=== PATIENT | male | born 1950 | race Caucasian/White ===

== ENCOUNTER 2018-06-22 11:55 | Inpatient (IN) | payer SELFPAY ==
[~2018-06-22] VITALS: Ht 180.3 cm; Wt 102.5 kg
[2018-06-22] MEDS ORDERED: TRESIBA FL100 UNIT/1 SQ (12:08)
[2018-06-22] MEDS ORDERED: GABAPENTIN300 MG ORAL (12:08)
[2018-06-22] MEDS ORDERED: Meclizine 25mg tab ORAL STA (12:11)
[2018-06-22 12:26] VITALS: BP 161/97
--- NOTE | 2018-06-22 12:27 | Emergency Room Report ---
History of Present Illness General Chief Complaint: Vomiting Source: Patient Present Illness HPI 67-year-old male with history of hypertension comes into the ER for pressure in his head, nausea and vomiting. Denies abdominal pain, denies chest pain, denies focal numbness, tingling, weakness, slurred speech. Allergies: Coded Allergies: No Known Allergies (Unverified , 06/22/18) Patient History Past Medical History: see triage record Reviewed Nursing Documentation: PMH: Agreed; PSxH: Agreed Nursing Documentation-PMH Hx Diabetes: Yes Review of Systems All Other Systems: negative except mentioned in HPI Physical Exam Vital Signs Date Time Temp Pulse Resp B/P (MAP) Pulse Ox O2 Delivery O2 Flow Rate FiO2 06/22/18 12:00 98.1 98 17 94 Room Air Sp02 EP Interpretation: reviewed, normal General Appearance: no apparent distress, alert, non-toxic Head: normocephalic Eyes: bilateral eye normal inspection, bilateral eye PERRL, bilateral eye EOMI ENT: normal ENT inspection, hearing grossly normal, normal pharynx, no angioedema, normal voice, moist mucus membranes Neck: normal inspection, full range of motion, supple, supple/symm/no masses Respiratory: chest non-tender, lungs clear, normal breath sounds, chest symmetrical, palpation of chest normal Cardiovascular #1: normal peripheral pulses, regular rate, rhythm Cardiovascular #2: 2+ radial (R), 2+ radial (L) Gastrointestinal: normal inspection, non tender, soft, no mass, no guarding, no rebound Rectal: deferred Genitourinary: normal inspection, no CVA tenderness Musculoskeletal: back normal, gait/station normal, normal range of motion, non- tender, no calf tenderness Neurologic: 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 patient with no more active vomiting s/p iv zofran and meclizine, IVF, ct head normal, cxr, labs, ekg all unremarkable, will give ASA and admit to Dr. Robledo , on tele, dx vertigo. EKG Diagnostic Results EKG Time: 13:20 EP Interpretation: no stemi Rate: normal Rhythm: NSR ST Segments: no acute changes ASA given to the pt in ED: Yes Rhythm Strip Diag. Results Rhythm Strip Time: 13:25 EP Interpretation: yes Rate: 70 Rhythm: NSR, no PVC's, no ectopy Chest X-Ray Diagnostic Results Chest X-Ray Diagnostic Results : Chest X-Ray Ordered: Yes Indication: Other - dizziness EP Interpretation: Yes Interpretation: no consolidation, no effusion, no pneumothorax, no acute cardiopulmonary disease Impression: No acute disease Electronically Signed by: Richard Naidu MD CT/MRI/US Diagnostic Results CT/MRI/US Diagnostic Results : Imaging Test Ordered: ct brain noncontrast Last Vital Signs Date Time Temp Pulse Resp B/P (MAP) Pulse Ox O2 Delivery O2 Flow Rate FiO2 06/22/18 12:00 98.1 98 17 94 Room Air Disposition: ADMITTED INPATIENT Condition: Stable Signed Out To: RICHARD Aguilar M.D June 22, 2018 12:27
--- NOTE | 2018-06-22 12:28 | NUR ---
ED Nurse Note:pt. came with c/o nausea vomiting abd pain since wednesday, A/Ox4 ambulatory with steady gait, VSS, blood and urine sent to labs, given IV fluids and meds
[2018-06-22 12:29] LABS: APPEARANCE,URINE CLEAR; BILIRUBIN, URINE NEGATIVE (NEGATIVE); COLOR,URINE YELLOW; GLUCOSE, URINE (UA) NEGATIVE (NEGATIVE); KETONES,URINE NEGATIVE (NEGATIVE); LEUKOCYTE ESTERASE ,URINE NEGATIVE (NEGATIVE); NITRITE,URINE NEGATIVE (NEGATIVE); PH,URINE 6.5 (4.5-8.0); PROTEIN,URINE NEGATIVE (NEGATIVE); UROBILINOGEN,URINE NORMAL MG/DL (0.0-1.0)
[2018-06-22 12:30] LABS: BASOPHILS % (AUTO) 0.9 % (0.0-2.0); EOSINOPHILS % (AUTO) 0.6 % (0.0-3.0); HEMATOCRIT 50.4 % (42.0-52.0); HEMOGLOBIN 17.4 G/DL (14.2-18.0); LYMPHOCYTES % (AUTO) 35.7 % (20.0-45.0); MEAN CORPUSCULAR VOLUME 89 FL (80-99); MONOCYTES % (AUTO) 6.2 % (1.0-10.0); NEUTROPHILS % (AUTO) 56.6 % (45.0-75.0); PLATELET COUNT 199 K/UL (150-450); RED BLOOD COUNT 5.64 M/UL (4.70-6.10); RED CELL DISTRIBUTION WIDTH 11.7 % (11.6-14.8); WHITE BLOOD COUNT 7.4 K/UL (4.8-10.8)
[2018-06-22 12:42] LABS: ANION GAP 9 mmol/L (5-15); BLOOD UREA NITROGEN 14 mg/dL (7-18); CALCIUM 8.6 MG/DL (8.5-10.1); CARBON DIOXIDE 25 MMOL/L (21-32); CHLORIDE 98 MMOL/L (98-107); CREATININE 0.8 MG/DL (0.55-1.30); POTASSIUM 4.3 MMOL/L (3.5-5.1); SODIUM 132 MMOL/L (136-145)
[2018-06-22] MEDS ORDERED: Acetaminophen 500mg (ES) tab ORAL ONE ×2 (12:45)
[2018-06-22 12:51] LABS: ALANINE AMINOTRANSFERASE 35 U/L (12-78); ALBUMIN 3.7 G/DL (3.4-5.0); ALBUMIN/GLOBULIN RATIO 0.8 (1.0-2.7); ALKALINE PHOSPHATASE 56 U/L (46-116); ASPARTATE AMINO TRANSFERASE 23 U/L (15-37); BILIRUBIN,TOTAL 0.7 MG/DL (0.2-1.0)
--- NOTE | 2018-06-22 13:54 | Diagnostic Imaging Report ---
Indication: Dyspnea Comparison: None A single view chest radiograph was obtained. Findings: Cardiomediastinal appearance is within normal limits for age. The lungs are clear. Pulmonary vascularity is appropriate. The diaphragmatic contour is smooth and costophrenic angles are sharp. No pleural effusions are identified. The bones are unremarkable. Impression: No acute findings
--- NOTE | 2018-06-22 13:54 | Diagnostic Imaging Report ---
Indication: Dizziness and headache Technique: Contiguous 5 mm thick transaxial imaging of the head obtained in a Siemens Sensation [address] scanner. Soft tissue and bone windows generated. Automatic Exposure Control was utilized. Total Dose length Product (DLP): 1435.[address] Dose Index Volume (CTDIvol): 70.38 mGy Comparison: none Findings: There is mild prominence of the ventricles, basal cisterns, and cerebral sulci consistent with atrophy. Mild, nonspecific, white matter hypoattenuation is noted throughout the brain consistent with chronic small vessel disease. There is no midline shift, edema, acute hemorrhage, mass effect, or abnormal extra-axial fluid collections. Bones and extra osseous soft tissues are unremarkable. The mastoids are poorly pneumatized. Impression: No acute intracranial bleed, mass effect or edema. Mild atrophy of the brain. Nonspecific white matter hypoattenuation probably due to chronic small vessel disease. The CT scanner at [facility] is accredited by the [employer] and the scans are performed using dose optimization techniques as appropriate to a performed exam including Automatic Exposure control.
[2018-06-22] MEDS ORDERED: DiphenhydrAMINE 50mg/ml Inj IVP ONE (14:15)
[2018-06-22] MEDS ORDERED: Metoclopramide 10mg/2ml Inj IVP ONE (14:15)
[2018-06-22 14:36] VITALS: BP 138/90
--- NOTE | 2018-06-22 14:38 | NUR ---
ED Nurse Note:pt. was placed on phototypesetting equipment monitor and will be admited to tele, pain meds were given, condition stable
[2018-06-22] MEDS ORDERED: LORazepam Inj 2mg/ml 1ml IV PRN (14:45)
--- NOTE | 2018-06-22 14:45 | NUR ---
ED Nurse Note:pt's jesus [phone]
[2018-06-22] MEDS ORDERED: Ketorolac 30mg Inj IV PRN (15:00)
--- NOTE | 2018-06-22 15:04 | History and Physical ---
History of Present Illness General Date patient seen: June 22, 2018 Time patient seen: 14:45 Reason for Hospitalization: Vomiting Present Illness HPI 67 year old man with obesity and type 2 DM, visiting from [place] who presents to the ED with complaints of diffuse headache, intractable nausea and vomiting, inability to maintain any oral intake. Symptoms started Wednesday after arriving to [place]. Denies any fever, chills, abdominal pain, diarrhea. No sick contacts. No chest pain, dyspnea or palpitations. No leg swelling. Patient was evaluated at [facility] ED 3 days ago, treated with IV fluids with improvement and released. In E Social History: Never smoker Family History: No premature CAD Allergies: Coded Allergies: No Known Allergies (Unverified , 06/22/18) Medication History Scheduled Gabapentin* (Gabapentin*), 300 MG ORAL THREE TIMES A DAY, (Reported) Miscellaneous Medications Insulin Degludec (Tresiba Flextouch U-100), 100 UNIT SQ, (Reported) Patient History Healthcare decision maker Resuscitation status Advanced Directive on File Review of Systems Constitutional: Denies: chills, fever Eye: Denies: eye pain, blurred vision ENT: Denies: ear pain Respiratory: Denies: cough Cardiovascular: Denies: chest pain Gastrointestinal: Reports: nausea, vomiting; Denies: abdominal pain, melena, hematemesis Genitourinary: Denies: dysuria Musculoskeletal: Denies: back pain, joint pain Skin: Denies: rash Neurological: Reports: headache; Denies: numbness, paresthesia, seizure, tingling Physical Exam General Appearance: no apparent distress, alert HEENT: atraumatic, anicteric Neck: normal alignment, supple Respiratory/Chest: lungs clear, normal breath sounds, no respiratory distress Cardiovascular/Chest: normal rate, regularly irregular Abdomen: non tender, soft, no organomegaly Extremities: non-tender, normal inspection 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, no motor/sensory deficits, alert, oriented x 3, responsive Last 24 Hour Vital Signs Date Time Temp Pulse Resp B/P (MAP) Pulse Ox O2 Delivery O2 Flow Rate FiO2 06/22/18 14:36 98.1 67 17 138/90 97 Room Air 06/22/18 13:15 98.1 06/22/18 12:26 98.1 96 17 161/97 94 Room Air 06/22/18 12:26 98 17 Room Air 06/22/18 12:00 98.1 98 17 94 Room Air Laboratory Tests Test 06/22/18 12:20 White Blood Count 7.4 K/UL (4.8-10.8) Red Blood Count 5.64 M/UL (4.70-6.10) Hemoglobin 17.4 G/DL (14.2-18.0) Hematocrit 50.4 % (42.0-52.0) Mean Corpuscular Volume 89 FL (80-99) Mean Corpuscular Hemoglobin 30.8 PG (27.0-31.0) Mean Corpuscular Hemoglobin Concent 34.6 G/DL (32.0-36.0) Red Cell Distribution Width 11.7 % (11.6-14.8) Platelet Count 199 K/UL (150-450) Mean Platelet Volume 7.5 FL (6.5-10.1) Neutrophils (%) (Auto) 56.6 % (45.0-75.0) Lymphocytes (%) (Auto) 35.7 % (20.0-45.0) Monocytes (%) (Auto) 6.2 % (1.0-10.0) Eosinophils (%) (Auto) 0.6 % (0.0-3.0) Basophils (%) (Auto) 0.9 % (0.0-2.0) Urine Color Yellow Urine Appearance Clear Urine pH 6.5 (4.5-8.0) Urine Specific [place] 1.015 (1.005-1.035) Urine Protein Negative (NEGATIVE) Urine Glucose (UA) Negative (NEGATIVE) Urine Ketones Negative (NEGATIVE) Urine Blood Negative (NEGATIVE) Urine Nitrite Negative (NEGATIVE) Urine Bilirubin Negative (NEGATIVE) Urine Urobilinogen Normal MG/DL (0.0-1.0) Urine Leukocyte Esterase Negative (NEGATIVE) Sodium Level 132 MMOL/L (136-145) L Potassium Level 4.3 MMOL/L (3.5-5.1) Chloride Level 98 MMOL/L (98-107) Carbon Dioxide Level 25 MMOL/L (21-32) Anion Gap 9 mmol/L (5-15) Blood Urea Nitrogen 14 mg/dL (7-18) Creatinine 0.8 MG/DL (0.55-1.30) Estimat Glomerular Filtration Rate > 60 mL/min (>60) Glucose Level 152 MG/DL (74-106) H Calcium Level 8.6 MG/DL (8.5-10.1) Total Bilirubin 0.7 MG/DL (0.2-1.0) Aspartate Amino Transf (AST/SGOT) 23 U/L (15-37) Alanine Aminotransferase (ALT/SGPT) 35 U/L (12-78) Alkaline Phosphatase 56 U/L (46-116) Total Protein 8.3 G/DL (6.4-8.2) H Albumin 3.7 G/DL (3.4-5.0) Globulin 4.6 g/dL Albumin/Globulin Ratio 0.8 (1.0-2.7) L Lipase 179 U/L (73-393) Height (Feet): 5 Height (Inches): 11.00 Weight (Pounds): 226 Medications Current Medications Medications (Trade) Dose Ordered Sig/Ami Route PRN Reason Start Time Stop Time Status Last Admin Dose Admin Acetaminophen (Tylenol) 650 mg Q4H PRN ORAL Mild Pain (Pain Scale 1-3) 06/22/18 14:45 07/22/18 14:44 Dextrose (Dextrose 50%) 25 ml Q30M PRN IV Hypoglycemia 06/22/18 14:45 07/22/18 14:44 Dextrose (Dextrose 50%) 50 ml Q30M PRN IV Hypoglycemia 06/22/18 14:45 07/22/18 14:44 Gabapentin (Neurontin) 300 mg THREE TIMES A DAY ORAL 06/22/18 18:00 07/22/18 17:59 Heparin Sodium (Porcine) (Heparin 5000 units/ml) 5,000 units EVERY 12 HOURS SUBQ 06/22/18 21:00 07/22/18 20:59 Lorazepam (Ativan 2mg/ml 1ml) 0.5 mg Q4H PRN IV For Anxiety 06/22/18 14:45 06/29/18 14:44 Ondansetron HCl (Zofran) 4 mg Q6H PRN IVP Nausea & Vomiting 06/22/18 14:45 07/22/18 14:44 Prochlorperazine (Compazine) 10 mg Q6H PRN IVP Nausea & Vomiting 06/22/18 14:45 07/22/18 14:44 Sodium Chloride 1,000 ml @ 100 mls/hr Q10H IVLG 06/22/18 18:00 07/22/18 17:59 Assessment/Plan Assessment/Plan: 67 year old man with history of obesity and DM who presents with persistent headache, nausea, vomiting and inability to maintain oral intake. 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
--- NOTE | 2018-06-22 15:05 | NUR ---
ED Nurse Note:pt. went to MRI
--- NOTE | 2018-06-22 15:30 | NUR ---
ED Nurse Note:pt. is back from MRI
--- NOTE | 2018-06-22 15:36 | NUR ---
ED Nurse Note:called report to tele- given to becka Logan. taken up stairs
--- NOTE | 2018-06-22 15:57 | Diagnostic Imaging Report ---
Indication: Headache dizziness Technique: The head was imaged in a 1.5 Karen magnet. Sequences obtained include sagittal and axial T1 FLAIR, axial T2 fast spin echo with fat saturation, axial T2 FLAIR, diffusion and ADC map. Comparison: None Findings: There is mild prominence of the sulci, ventricles, and basal cisterns consistent with atrophy. Minimal, nonspecific T2 hyperintensity noted within white matter. This may be due to chronic small vessel disease. There is no restricted diffusion. Avilez-white differentiation is normal. There is no mass effect, midline shift, edema, or hemorrhage. There are no abnormal extra-axial or intra-axial fluid collections. The corpus callosum and sella are unremarkable. The brainstem and cerebellum are unremarkable. Bone marrow signal within the visualized osseous structures appears age appropriate and unremarkable otherwise. There is mucosal thickening in the left maxillary sinus Impression: No acute intracranial findings. No acute CVA. Mild atrophy. Minimal periventricular T2 signal likely due to chronic small vessel disease. Sinus disease
[2018-06-22 16:03] VITALS: BP 140/80
[2018-06-22] MEDS: NovoLOG Insulin Flexpen SUBQ SCH ×2 (16:17→21:19)
--- NOTE | 2018-06-22 19:13 | NUR ---
HAND-OFF: Report given to FRANCY LEE.
[2018-06-22] MEDS ORDERED: Hydromorphone 0.5mg/0.5ml inj IVP PRN (19:15)
--- NOTE | 2018-06-22 19:15 | NUR ---
NURSE NOTES: Report received from Maddy Bruce RN. Pt is resting in bed in stable condition. Pt is awake, alert, and oriented x4, primarily Farsi speaking. Pt is on room air and breathing is even and unlabored. No acute distress noted. IV site is R AC #22 and running IV fluids at rx rate. IV site is asymptomatic, patent, and intact. Bed is placed in lowest position with brake engaged, side rails up x2. and friend, Kristofer are at bedside. Pt education provided regarding clear liquid diet and emphasis placed in maintaining diet. Pt agreeable and verbalized understanding. Pt denies N/V at this time. Will continue to monitor.
--- NOTE | 2018-06-22 19:45 | NUR ---
NURSE NOTES: Pt requesting for diet change d/t being hungry and also requesting private room so that is able to stay with him overnight. Pt informed that we would accommodate the room change as available and that the doctor would be informed about diet change request. Pt again reminded regarding clear liquid diet and to maintain until diet change was made by provider.
--- NOTE | 2018-06-22 19:50 | NUR ---
NURSE NOTES: Pt friend brought rice and meat and pt admitted to eating the food despite pt education and emphasis on maintaining a clear liquid diet. Pt states that he is not having N/V/abdominal pain and that he was hungry so he ate. Pt education regarding importance of maintaining rx diet provided again. Pt states that he "won't eat anything else now." MD Pedro, covering for MD Hitchcock, informed regarding pt non-compliance with diet. Per MD, inform MD Beckham/Coretta in AM as well and continue to monitor patient.
[2018-06-22 20:00] VITALS: BP 136/78
--- NOTE | 2018-06-22 20:30 | NUR ---
NURSE NOTES: Charge nurse Adelaide Sotelo aware of pt non-compliance with diet.
[2018-06-22] MEDS: Heparin 5000 units/ml inj SUBQ SCH (21:00)
[2018-06-22] MEDS ORDERED: Levemir Flexpen SUBQ SCH (21:00)
[2018-06-22] MEDS: Metoclopramide 10mg/2ml Inj IVP SCH (21:18)
[2018-06-22] MEDS: Pantoprazole Inj IVP SCH (21:18)
[2018-06-23] VITALS: BP 113/56
[2018-06-23] MEDS: Metoclopramide 10mg/2ml Inj IVP SCH (03:15)
[2018-06-23 04:00] VITALS: BP 127/61
[2018-06-23] MEDS: NovoLOG Insulin Flexpen SUBQ SCH ×2 (06:17→12:07)
[2018-06-23 06:27] LABS: BASOPHILS % (AUTO) 1.1 % (0.0-2.0); EOSINOPHILS % (AUTO) 1.1 % (0.0-3.0); HEMATOCRIT 45.9 % (42.0-52.0); HEMOGLOBIN 15.7 G/DL (14.2-18.0); MEAN CORPUSCULAR VOLUME 90 FL (80-99); MONOCYTES % (AUTO) 6.4 % (1.0-10.0); NEUTROPHILS % (AUTO) 46.4 % (45.0-75.0); PLATELET COUNT 176 K/UL (150-450); RED BLOOD COUNT 5.13 M/UL (4.70-6.10); RED CELL DISTRIBUTION WIDTH 11.6 % (11.6-14.8); WHITE BLOOD COUNT 6.5 K/UL (4.8-10.8)
[2018-06-23 06:47] LABS: ALANINE AMINOTRANSFERASE 29 U/L (12-78); ALBUMIN 3.1 G/DL (3.4-5.0); ALBUMIN/GLOBULIN RATIO 0.8 (1.0-2.7); ALKALINE PHOSPHATASE 53 U/L (46-116); ANION GAP 6 mmol/L (5-15); ASPARTATE AMINO TRANSFERASE 17 U/L (15-37); BILIRUBIN,TOTAL 0.5 MG/DL (0.2-1.0); BLOOD UREA NITROGEN 13 mg/dL (7-18); CARBON DIOXIDE 28 MMOL/L (21-32); CHLORIDE 104 MMOL/L (98-107); CHOLESTEROL 156 MG/DL (< 200); CREATININE 0.8 MG/DL (0.55-1.30); HDL CHOLESTEROL 41 MG/DL (40-60); PHOSPHORUS 3.4 MG/DL (2.5-4.9); POTASSIUM 3.9 MMOL/L (3.5-5.1); SODIUM 138 MMOL/L (136-145); TRIGLYCERIDES 138 MG/DL (30-150)
--- NOTE | 2018-06-23 07:39 | NUR ---
HAND-OFF: Report given to Nakia Miranda RN. Pt is resting in bed in stable condition. No acute distress noted. Endorsed plan of care.
--- NOTE | 2018-06-23 07:48 | NUR ---
NURSE NOTES: Received report from Melissa/LEE. Patient is awake and resting on bed, No acute distress at this time. at bedside, Bed in lowest position and locked, Call light within reach. Will continue plan of care.
[2018-06-23 08:00] VITALS: BP 151/81
[2018-06-23] MEDS: Pantoprazole Inj IVP SCH (09:02)
[2018-06-23] MEDS: Heparin 5000 units/ml inj SUBQ SCH (09:05)
[2018-06-23] MEDS ORDERED: FAMOTIDINE20 MG ORAL (11:35)
[2018-06-23] MEDS ORDERED: REGLAN10 MG ORAL (11:35)
--- NOTE | 2018-06-23 11:53 | Discharge Summary ---
Discharge Summary Hospital Course Date of Admission June 22, 2018 at 14:00 Date of Discharge 06/23 Admitting Diagnosis Dizziness AMAURI Clement is a 67 year old male who was admitted on June 22, 2018 at 14:00 for Dizziness Hospital Course 67 year old man with history of obesity and DM who presents with persistent headache, nausea, vomiting and inability to maintain oral intake. 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
[2018-06-23 12:00] VITALS: BP 130/76
--- NOTE | 2018-06-23 12:45 | NUR ---
NURSE NOTES: Discharge instruction given, Patient verbalized understanding. Heart monitor and IV removed, No sign of distress. Patient in stable condition. Escorted patient and family members to down stairs. left via private vehicle.
--- NOTE | 2018-06-23 12:47 | NUR ---
CASE MANAGEMENT:REVIEW 67YR OLD MALE PRESENTED TO ER CC: VOMITING AND HEADACHE SI: VOMITING. VERTIGO 98.0 98 17 161/97 94% ON RA GLUCOSE+152 IS; MECLIZINE PO 1L NS BOLUS IV ZOFRAN CT HEAD CXR : TO TELEMETRY
--- NOTE | 2018-06-23 12:55 | Consultation ---
History of Present Illness General Date patient seen: June 22, 2018 Chief Complaint: Headache Referring physician: Dr. Montgomery Present Illness HPI 67 year old man with obesity and type 2 DM, visiting from [place] who presented to the ED with complaints of diffuse headache, intractable nausea and vomiting, inability to maintain any oral intake. Symptoms started Wednesday after arriving to [place]. He denied any fever, chills, abdominal pain, diarrhea, sick contacts, chest pain , dyspnea or palpitations, leg swelling. Patient was evaluated at [facility] ED 3 days ago for similar complaints, treated with IV fluids with improvement and released. Allergies: Coded Allergies: No Known Allergies (Unverified , 06/22/18) Medication History Scheduled Famotidine (Famotidine), 20 MG ORAL BID Gabapentin* (Gabapentin*), 300 MG ORAL THREE TIMES A DAY, (Reported) Metoclopramide Hcl* (Reglan*), 10 MG ORAL THREE TIMES A DAY Miscellaneous Medications Insulin Degludec (Tresiba Flextouch U-100), 100 UNIT SQ, (Reported) Patient History Healthcare decision maker Resuscitation status Full Code Advanced Directive on File Physical Exam General Appearance: obese Lines, tubes and drains: peripheral HEENT: normocephalic, atraumatic Neck: non-tender, normal alignment, supple Respiratory/Chest: normal breath sounds, no respiratory distress, no accessory muscle use Cardiovascular/Chest: normal rate, regular rhythm, no JVD Skin Exam: normal pigmentation, warm/dry 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, no motor/sensory deficits, abnormal gait , alert, oriented x 3, responsive, normal mood/affect, no Babinski, other Last 24 Hour Vital Signs Date Time Temp Pulse Resp B/P (MAP) Pulse Ox O2 Delivery O2 Flow Rate FiO2 06/23/18 08:00 98.3 72 21 151/81 (104) 99 06/23/18 04:00 69 06/23/18 04:00 97.9 77 19 127/61 (83) 96 06/23/18 00:00 76 06/23/18 00:00 98.4 82 18 113/56 (75) 95 06/22/18 21:00 Room Air 06/22/18 20:00 98.2 78 20 136/78 (97) 96 06/22/18 20:00 79 06/22/18 16:22 72 06/22/18 16:07 Room Air 06/22/18 16:03 98.0 70 18 140/80 (100) 98 06/22/18 15:35 98.1 67 17 138/90 97 Room Air 06/22/18 14:36 98.1 67 17 138/90 97 Room Air 06/22/18 13:15 98.1 Intake and Output 06/22/18 06/23/18 19:00 07:00 Intake Total 340 ml 1000 ml Balance 340 ml 1000 ml Intake Oral 240 ml IV Total 100 ml 1000 ml # Voids 1 Laboratory Tests Test 06/23/18 06:05 White Blood Count 6.5 K/UL (4.8-10.8) Red Blood Count 5.13 M/UL (4.70-6.10) Hemoglobin 15.7 G/DL (14.2-18.0) Hematocrit 45.9 % (42.0-52.0) Mean Corpuscular Volume 90 FL (80-99) Mean Corpuscular Hemoglobin 30.5 PG (27.0-31.0) Mean Corpuscular Hemoglobin Concent 34.1 G/DL (32.0-36.0) Red Cell Distribution Width 11.6 % (11.6-14.8) Platelet Count 176 K/UL (150-450) Mean Platelet Volume 7.9 FL (6.5-10.1) Neutrophils (%) (Auto) 46.4 % (45.0-75.0) Lymphocytes (%) (Auto) 45.0 % (20.0-45.0) Monocytes (%) (Auto) 6.4 % (1.0-10.0) Eosinophils (%) (Auto) 1.1 % (0.0-3.0) Basophils (%) (Auto) 1.1 % (0.0-2.0) Sodium Level 138 MMOL/L (136-145) Potassium Level 3.9 MMOL/L (3.5-5.1) Chloride Level 104 MMOL/L (98-107) Carbon Dioxide Level 28 MMOL/L (21-32) Anion Gap 6 mmol/L (5-15) Blood Urea Nitrogen 13 mg/dL (7-18) Creatinine 0.8 MG/DL (0.55-1.30) Estimat Glomerular Filtration Rate > 60 mL/min (>60) Glucose Level 100 MG/DL (74-106) Hemoglobin A1c 7.1 % (4.3-6.0) H Uric Acid 4.7 MG/DL (2.6-7.2) Calcium Level 8.0 MG/DL (8.5-10.1) L Phosphorus Level 3.4 MG/DL (2.5-4.9) Magnesium Level 1.8 MG/DL (1.8-2.4) Total Bilirubin 0.5 MG/DL (0.2-1.0) Aspartate Amino Transf (AST/SGOT) 17 U/L (15-37) Alanine Aminotransferase (ALT/SGPT) 29 U/L (12-78) Alkaline Phosphatase 53 U/L (46-116) C-Reactive Protein, Quantitative < 0.4 mg/dL (0.00-0.90) Pro-B-Type Natriuretic Peptide 22 pg/mL (0-125) Total Protein 7.1 G/DL (6.4-8.2) Albumin 3.1 G/DL (3.4-5.0) L Globulin 4.0 g/dL Albumin/Globulin Ratio 0.8 (1.0-2.7) L Triglycerides Level 138 MG/DL (30-150) Cholesterol Level 156 MG/DL (< 200) LDL Cholesterol 97 mg/dL (<100) HDL Cholesterol 41 MG/DL (40-60) Cholesterol/HDL Ratio 3.8 (3.3-4.4) Thyroid Stimulating Hormone (TSH) 2.380 uiU/mL (0.358-3.740) Height (Feet): 5 Height (Inches): 11.00 Weight (Pounds): 226 Medications Current Medications Medications (Trade) Dose Ordered Sig/Ami Route PRN Reason Start Time Stop Time Status Last Admin Dose Admin Acetaminophen (Tylenol) 650 mg Q4H PRN ORAL Mild Pain (Pain Scale 1-3) 06/22/18 14:45 07/22/18 14:44 Dextrose (Dextrose 50%) 25 ml Q30M PRN IV Hypoglycemia 06/22/18 15:00 07/22/18 14:59 Dextrose (Dextrose 50%) 50 ml Q30M PRN IV Hypoglycemia 06/22/18 15:00 07/22/18 14:59 Famotidine (Pepcid) 20 mg BID ORAL 06/23/18 18:00 07/23/18 17:59 Gabapentin (Neurontin) 300 mg THREE TIMES A DAY ORAL 06/22/18 18:00 07/22/18 17:59 06/23/18 09:02 Heparin Sodium (Porcine) (Heparin 5000 units/ml) 5,000 units EVERY 12 HOURS SUBQ 06/22/18 21:00 07/22/18 20:59 06/23/18 09:05 Insulin Aspart (NovoLOG) BEFORE MEALS AND HS SUBQ 06/22/18 16:30 07/22/18 16:29 06/23/18 12:07 Insulin Detemir (Levemir) 10 units BEDTIME SUBQ 06/22/18 21:00 07/22/18 20:59 06/22/18 21:20 Metoclopramide HCl (Reglan) 10 mg THREE TIMES A DAY ORAL 06/23/18 13:00 07/23/18 12:59 Ondansetron HCl (Zofran) 4 mg Q6H PRN IVP Nausea & Vomiting 06/22/18 14:45 07/22/18 14:44 Assessment/Plan Status: stable Assessment/Plan: MRI Brain ordered - NAD Likely viral / migrainous phenomenon Treat symptomatically May trial Triptan such as Maxalt 5mg sublingual May also trial meclizine for dizziness IV hydration for dehydration Patient needs to manage hyperglycemia - Nelia Zuniga N.P. June 23, 2018 12:55
== END 2018-06-23 13:00 | disposition home or self-care (01) | DRG 392 ==
LOC: EMR 13:00 → 2E 14:00 → EDBEDREQ 14:43 → 2E 06-23 00:12
DX: R11.2 Nausea with vomiting, unspecified (principal); E87.1 Hypo-osmolality and hyponatremia; R42 Dizziness and giddiness; E86.0 Dehydration; E11.40 Type 2 diabetes mellitus with diabetic neuropathy, unspecified; E66.9 Obesity, unspecified; R51 Headache; Z68.31 Body mass index [BMI] 31.0-31.9, adult
CPT/HCPCS: 36415; 70450; 70551; 71045; 80053; 80061; 81003; 82962; 83036; 83690; 83735; 83880; 84100; 84443; 84484; 84550; 85025; 86140; 93005; 96361; 96374; 96375; 99285; J1815; J2405; J2765; S5561